=== PATIENT | female | born 1940 | race Caucasian/White ===

== ENCOUNTER → 2017-10-27 | Outpatient (CLI) | payer OTHER ==
[~2017-10-27] MED LIST: ASPIR 8181 MG PO; AUGMENTIN 875-1 EACH PO; EYE VITAMIN; GABAPENTIN100 MG PO; LIPITOR 20 MG T20 M1 PO; LISINOPRIL5 MG PO; NORVASC2.5 MG PO; [UNRECOGNIZED DRUG - REMARK]
== END ==
LOC: M.RAD 10-18 13:50
DX: M47.816 Spondylosis without myelopathy or radiculopathy, lumbar region (principal); M48.061 Spinal stenosis, lumbar region without neurogenic claudication; M51.16 Intervertebral disc disorders with radiculopathy, lumbar region; M41.86 Other forms of scoliosis, lumbar region; M48.07 Spinal stenosis, lumbosacral region

== ENCOUNTER 2018-03-06 14:52 | Emergency (ER) | payer OTHER ==
[~2018-03-06] VITALS: Ht 172.7 cm; Wt 61.2 kg
[2018-03-06] MEDS ORDERED: [UNRECOGNIZED DRUG - REMARK] (15:00)
[2018-03-06] MEDS ORDERED: EYE VITAMIN (15:00)
[2018-03-06] MEDS ORDERED: LISINOPRIL5 MG PO (15:01)
[2018-03-06] MEDS ORDERED: GABAPENTIN100 MG PO (15:01)
[2018-03-06] MEDS ORDERED: ASPIR 8181 MG PO (15:01)
[2018-03-06] MEDS ORDERED: LIPITOR 20 MG T20 M1 PO (15:01)
[2018-03-06] MEDS ORDERED: NORVASC2.5 MG PO (15:01)
[2018-03-06] MEDS ORDERED: AUGMENTIN 875-1 EACH PO (15:20)
[2018-03-06 16:41] VITALS: BP 135/73
== END 2018-03-06 16:42 | disposition home or self-care (01) ==
LOC: M.ERS 14:52
DX: S61.451A Open bite of right hand, initial encounter (principal); W54.0XXA Bitten by dog, initial encounter; Y93.89 Activity, other specified; Y92.89 Other specified places as the place of occurrence of the external cause; Y99.8 Other external cause status; I10 Essential (primary) hypertension; F17.210 Nicotine dependence, cigarettes, uncomplicated; Z88.0 Allergy status to penicillin; Z88.2 Allergy status to sulfonamides; Z88.5 Allergy status to narcotic agent; Z88.8 Allergy status to other drugs, medicaments and biological substances

== ENCOUNTER 2018-03-09 15:04 | Emergency (ER) | payer OTHER ==
[~2018-03-09] VITALS: Ht 172.7 cm; Wt 56.7 kg
[2018-03-09 16:19] VITALS: BP 112/64
== END 2018-03-09 16:20 | disposition home or self-care (01) ==
LOC: M.ERS 15:04
DX: S61.411D Laceration without foreign body of right hand, subsequent encounter (principal); X58.XXXD Exposure to other specified factors, subsequent encounter; I10 Essential (primary) hypertension; Z88.0 Allergy status to penicillin; Z88.2 Allergy status to sulfonamides; Z88.5 Allergy status to narcotic agent

== ENCOUNTER → 2018-08-17 | Outpatient (CLI) | payer OTHER | LOC: M.RAD 16:01 | DX: M47.26 Other spondylosis with radiculopathy, lumbar region (principal); M47.818 Spondylosis without myelopathy or radiculopathy, sacral and sacrococcygeal region; J43.1 Panlobular emphysema; I10 Essential (primary) hypertension; G89.29 Other chronic pain ==

== ENCOUNTER 2018-12-11 07:52 | Emergency (ER) | payer OTHER ==
[~2018-12-11] VITALS: Ht 172.7 cm; Wt 65.8 kg
[2018-12-11] MEDS ORDERED: HYDROCODON-ACE1 EAC7 PO (11:50)
[2018-12-11] MEDS ORDERED: IBUPROFEN 800800 M1 PO (11:50)
[2018-12-11 11:55] VITALS: BP 135/72
== END 2018-12-11 11:58 | disposition home or self-care (01) ==
LOC: M.ERS 07:52
DX: S92.321A Displaced fracture of second metatarsal bone, right foot, initial encounter for closed fracture (principal); S92.331A Displaced fracture of third metatarsal bone, right foot, initial encounter for closed fracture; I10 Essential (primary) hypertension; M81.0 Age-related osteoporosis without current pathological fracture; Z88.5 Allergy status to narcotic agent; Z88.0 Allergy status to penicillin; Z88.2 Allergy status to sulfonamides; Z88.1 Allergy status to other antibiotic agents; W06.XXXA Fall from bed, initial encounter; Y92.89 Other specified places as the place of occurrence of the external cause; Y93.89 Activity, other specified; Y99.8 Other external cause status

== ENCOUNTER → 2020-03-13 | Outpatient (CLI) | payer OTHER ==
[~2020-03-13] MED LIST changes: +HYDROCODON-ACE1 EAC7 PO; +IBUPROFEN 800800 M1 PO
== END ==
LOC: M.CT 15:10
PROVIDERS: ATTEND Registered Nurse Diabetes Educator
DX: M51.36 Other intervertebral disc degeneration, lumbar region (principal); J43.1 Panlobular emphysema; R91.8 Other nonspecific abnormal finding of lung field; J98.4 Other disorders of lung; J43.9 Emphysema, unspecified; M48.07 Spinal stenosis, lumbosacral region; M41.86 Other forms of scoliosis, lumbar region; M25.78 Osteophyte, vertebrae

== ENCOUNTER → 2020-05-20 | Outpatient (CLI) | payer OTHER ==
--- NOTE | 2020-05-20 14:15 | 2DMMODE ---
[place] [address] 2 D/M-MODE ECHOCARDIOGRAM Name: CANDELARIO DELGADO Room: [facility]#: [id number] Admission: 05/20/20 Attend Phys: HUNG Harper Discharge: Date of : 36 Date of Service: 05/20/20 1414 Report #: [id number] THIS REPORT FOR: cc: Ludy Ontiveros Tammy RNP Blick, David R. MD [facility] ~ APPROVED REPORT Study performed: 05/20/2020 12:49:22 EXAM: Limited 2D Echocardiogram Patient Location: Out-Patient BSA: 1.73 HR: 76 bpm BP: 142/82 mmHg Other Information Study Quality: Technically Limited Technically limited study due to ribs close together. Indications Murmur 2D Dimensions IVSd: 11.97 (7-11mm) LVOT Diam: 20.01 (18-24mm) LVDd: 34.75 mm PWd: 11.48 (7-11mm) Ascending Ao: 29.41 (22-36mm) LVDs: 20.06 (25-40mm) Aortic Root: 24.28 mm Aortic Valve AoV Peak Josh.: 1.25 m/s AO Peak Gr.: 6.22 mmHg LVOT Max P.67 mmHg AO Mean Gr.: 3.66 mmHg LVOT Mean P.94 mmHg LVOT Max V: 0.96 m/s AO V2 VTI: 20.91 cm LVOT Mean V: 0.64 m/s EDNA (VTI): 3.66 cm2 LVOT V1 VTI: 24.35 cm Pulmonary Valve PV Peak Josh.: 0.70 m/s PV Peak Gr.: 1.99 mmHg Left Ventricle The left ventricle is normal size. There [place] [address] 2 D/M-MODE ECHOCARDIOGRAM Name: CANDELARIO DELGADO Room: [facility]#: [id number] Admission: 05/20/20 Attend Phys: HUNG Harper Discharge: Date of : 36 Date of Service: 05/20/20 1414 Report #: [id number] motion. Mild concentric left ventricular hypertrophy. The left ventricular systolic function is normal. The left ventricular ejection fraction is within the normal range. LVEF is 55-60%. Right Ventricle The right ventricle is normal size. The right ventricular systolic function is normal. Atria The left atrium size is normal. The right atrium size is normal. Aortic Valve Moderate aortic valve sclerosis. No aortic regurgitation is present. There is no aortic valvular stenosis. Mitral Valve The mitral valve is normal in structure. There is no mitral valve regurgitation noted. No evidence of mitral valve stenosis. Tricuspid Valve The tricuspid valve is normal in structure. Trace tricuspid regurgitation. Pulmonic Valve The pulmonary valve is normal in structure. There is no pulmonic valvular regurgitation. Great Vessels The aortic root is normal in size. IVC is normal in size and collapses >50% with inspiration. Pericardium There is no pericardial effusion. <Conclusion> Mild concentric left ventricular hypertrophy. LVEF is 55-60%. Moderate aortic valve sclerosis. <ELECTRONICALLY SIGNED> By: Remy Connors MD, [facility] 05/20/20 1414 141 1414 Remy Connors MD, FACC /INF
== END ==
LOC: M.CRD 12:35
PROVIDERS: ATTEND Registered Nurse Diabetes Educator
DX: J43.1 Panlobular emphysema (principal); J42 Unspecified chronic bronchitis; I35.1 Nonrheumatic aortic (valve) insufficiency; M51.34 Other intervertebral disc degeneration, thoracic region; I65.23 Occlusion and stenosis of bilateral carotid arteries

== ENCOUNTER 2020-10-28 18:28 | Emergency (ER) | payer OTHER ==
[~2020-10-28] VITALS: Ht 175.3 cm; Wt 63.5 kg
[2020-10-28 19:32] LABS: URINE BILIRUBIN NEGATIVE (Negative); URINE BLOOD NEGATIVE (Negative); URINE CLARITY CLEAR; URINE COLOR YELLOW; URINE GLUCOSE-RANDOM NEGATIVE (Negative); URINE KETONES TRACE (Negative); URINE LEUKOCYTES-REFLEX NEGATIVE (Negative); URINE NITRITE-REFLEX NEGATIVE (Negative); URINE PROTEIN 1+ (Negative); URINE SPECIFIC GRAVITY 1.015 (1.005-1.030)
[2020-10-28 19:40] LABS: ABSOLUTE EOSINOPHILS 0.1 thou/uL (0.0-0.7); ABSOLUTE LYMPHOCYTES 1.6 thou/uL (0.8-5.3); ABSOLUTE MONOCYTES 0.9 thou/uL (0.0-1.2); ABSOLUTE NEUTROPHILS 7.4 thou/uL (1.6-8.1); BASOPHILS 0.4 %; EOSINOPHILS 0.9 %; HEMATOCRIT 40.4 % (37.0-47.0); HEMOGLOBIN 13.6 gm/dL (12.0-15.0); LYMPHOCYTES 15.9 %; MCH 31.6 pg (26.0-34.0); MCHC 33.7 g/dL (28.0-37.0); MCV 93.8 fL (80.0-100.0); MONOCYTES 8.9 %; MPV 7.7 fl. (7.2-11.1); NUCLEATED RBCS 0 /100WBC; PLATELET COUNT* 291 thou/uL (150-400); POLYS 73.9 %; RBC 4.31 mil/uL (4.20-5.00); RDW-CV 15.4 % (10.5-14.5)
[2020-10-28 19:47] LABS: CALCIUM 9.2 mg/dL (8.5-10.1); CREATININE 0.9 mg/dL (0.6-1.3); POTASSIUM 3.9 mmol/L (3.5-5.1)
[2020-10-28 19:51] LABS: ALBUMIN 4.1 g/dL (3.4-5.0); TOTAL BILIRUBIN 0.4 mg/dL (<0.1-1.0); TOTAL PROTEIN 8.4 g/dL (6.4-8.2)
[2020-10-28 20:31] LABS: CRYSTALS None Seen /LPF (None Seen); HYALINE CASTS 0-3 Few /LPF (None Seen); SQUAMOUS >10 Many /LPF (0-3)
[2020-10-28 20:32] LABS: BACTERIA-REFLEX >30 Many /HPF (None Seen); URINE RBC 0-2 Rare /HPF (0-2); URINE WBC-REFLEX 0-5 Rare /HPF (0-5)
[2020-10-28 21:28] VITALS: BP 167/54
== END 2020-10-28 21:29 | disposition home or self-care (01) ==
LOC: M.ERS 18:28
PROVIDERS: Emergency Medicine
DX: S92.411A Displaced fracture of proximal phalanx of right great toe, initial encounter for closed fracture (principal); I10 Essential (primary) hypertension; Z88.5 Allergy status to narcotic agent; Z88.0 Allergy status to penicillin; Z88.2 Allergy status to sulfonamides; W19.XXXA Unspecified fall, initial encounter; Y93.89 Activity, other specified; Y92.89 Other specified places as the place of occurrence of the external cause; Y99.8 Other external cause status

== ENCOUNTER 2021-01-29 15:59 | Emergency (ER) | payer OTHER ==
[~2021-01-29] VITALS: Ht 152.4 cm; Wt 53.1 kg
[2021-01-29 16:29] LABS: ABSOLUTE EOSINOPHILS 0.2 thou/uL (0.0-0.7); ABSOLUTE MONOCYTES 0.7 thou/uL (0.0-1.2); ABSOLUTE NEUTROPHILS 3.2 thou/uL (1.6-8.1); BASOPHILS 0.7 %; EOSINOPHILS 3.7 %; HEMATOCRIT 36.8 % (37.0-47.0); HEMOGLOBIN 12.2 gm/dL (12.0-15.0); LYMPHOCYTES 31.8 %; MONOCYTES 10.9 %; NUCLEATED RBCS 0 /100WBC; PLATELET COUNT* 306 thou/uL (150-400); POLYS 52.9 %; RBC 3.92 mil/uL (4.20-5.00); RDW-CV 16.2 % (10.5-14.5); WBC 6.1 thou/uL (4.0-11.0)
[2021-01-29 16:39] LABS: CALCIUM 8.9 mg/dL (8.5-10.1); POTASSIUM 4.1 mmol/L (3.5-5.1)
[2021-01-29 16:44] LABS: ALBUMIN 3.4 g/dL (3.4-5.0); TOTAL BILIRUBIN 0.3 mg/dL (<0.1-1.0); TOTAL PROTEIN 7.4 g/dL (6.4-8.2)
[2021-01-29 17:56] LABS: URINE BILIRUBIN NEGATIVE (Negative); URINE BLOOD NEGATIVE (Negative); URINE CLARITY CLEAR; URINE COLOR YELLOW; URINE GLUCOSE-RANDOM NEGATIVE (Negative); URINE KETONES NEGATIVE (Negative); URINE LEUKOCYTES-REFLEX NEGATIVE (Negative); URINE NITRITE-REFLEX NEGATIVE (Negative); URINE PROTEIN TRACE (Negative)
[2021-01-29] MEDS ORDERED: LOPERAMIDE 2 MG2 M1 PO (18:08)
[2021-01-29 18:22] VITALS: BP 128/86
== END 2021-01-29 18:23 | disposition home or self-care (01) ==
LOC: M.ERS 15:59
PROVIDERS: Physician Assistant
DX: R19.7 Diarrhea, unspecified (principal); I10 Essential (primary) hypertension; J44.9 Chronic obstructive pulmonary disease, unspecified; M81.0 Age-related osteoporosis without current pathological fracture; G30.9 Alzheimer's disease, unspecified; Z79.82 Long term (current) use of aspirin; Z79.899 Other long term (current) drug therapy; Z88.5 Allergy status to narcotic agent; Z88.0 Allergy status to penicillin; Z88.1 Allergy status to other antibiotic agents; Z88.2 Allergy status to sulfonamides

== ENCOUNTER 2021-02-06 20:06 | Inpatient (IN) | payer OTHER ==
[~2021-02-06] VITALS: Ht 175.3 cm; Wt 54.6 kg
[~2021-02-06 20:06] MED LIST changes: +LOPERAMIDE 2 MG2 M1 PO
[2021-02-06 20:07] VITALS: BP 163/85
[2021-02-06 20:38] LABS: ABSOLUTE LYMPHOCYTES 0.8 thou/uL (0.8-5.3); ABSOLUTE MONOCYTES 0.6 thou/uL (0.0-1.2); ABSOLUTE NEUTROPHILS 5.7 thou/uL (1.6-8.1); BASOPHILS 0.5 %; EOSINOPHILS 0.5 %; HEMATOCRIT 35.2 % (37.0-47.0); HEMOGLOBIN 11.5 gm/dL (12.0-15.0); LYMPHOCYTES 11.7 %; MCH 30.8 pg (26.0-34.0); MCHC 32.8 g/dL (28.0-37.0); MCV 94.1 fL (80.0-100.0); MONOCYTES 8.3 %; NUCLEATED RBCS 0 /100WBC; PLATELET COUNT* 301 thou/uL (150-400); RBC 3.74 mil/uL (4.20-5.00); WBC 7.2 thou/uL (4.0-11.0)
[2021-02-06 20:48] LABS: CALCIUM 8.2 mg/dL (8.5-10.1); POTASSIUM 4.1 mmol/L (3.5-5.1)
[2021-02-06 20:58] LABS: ALBUMIN 2.9 g/dL (3.4-5.0); MAGNESIUM 1.7 mg/dL (1.8-2.4); TOTAL BILIRUBIN 0.4 mg/dL (<0.1-1.0)
[2021-02-06 22:06] LABS: URINE BILIRUBIN NEGATIVE (Negative); URINE BLOOD 1+ (Negative); URINE COLOR YELLOW; URINE GLUCOSE-RANDOM NEGATIVE (Negative); URINE KETONES NEGATIVE (Negative); URINE PROTEIN 2+ (Negative)
[2021-02-06 22:09] LABS: URINE CLARITY CLOUDY; URINE LEUKOCYTES-REFLEX 2+ (Negative); URINE NITRITE-REFLEX POSITIVE (Negative)
[2021-02-06 22:16] LABS: SQUAMOUS 4-10 Moderate /LPF (0-3); URINE RBC None Seen /HPF (0-2); URINE WBC-REFLEX >25 Many /HPF (0-5)
[2021-02-06 22:17] LABS: BACTERIA-REFLEX >30 Many /HPF (None Seen); CASTS None Seen /LPF (None Seen); CRYSTALS None Seen /LPF (None Seen)
[2021-02-06 22:57] VITALS: BP 130/62
[2021-02-06 23:15] VITALS: BP 125/64
[2021-02-07 04:00] VITALS: BP 142/64; BP 95/58
[2021-02-07 09:30] VITALS: BP 112/58
--- NOTE | 2021-02-07 10:25 | EKG ---
[place] [address] ELECTROCARDIOGRAM REPORT Name: CANDELARIO DELGADO Room: [address] ADM IN [facility].R.#: [id number] Admission: 02/06/21 Attend Phys: Sen Roldan Discharge: Date of : 36 Date of Service: 02/06/212004 Report #: [id number] THIS REPORT FOR: //name// [facility] ED Test Date: 2021-02-06 Test Time: 20:05:11 Pat Name: CANDELARIO DELGADO Department: Room: [facility] Gender: F Stuffed Casing Tier: BXIONG : 1940 Requested By: Sara Gallegos Order Number: [id number] MD: Jovani Craig Measurements Intervals [place] Rate: 121 P: 89 [place]: 147 QRS: 34 QRSD: 89 T: 89 QT: 302 QTc: 429 Interpretive Statements Sinus tachycardia Probable left atrial enlargement Left ventricular hypertrophy No previous ECG available for comparison Electronically Signed On 02-07-2021 10:25:43 CDT by Jovani Craig [email or web address] <ELECTRONICALLY SIGNED> By: Jovani Craig MD, FACC 02/07/21 1025 04 04 Jovani Craig MD, FAC /EPI
[2021-02-07 20:00] VITALS: BP 154/80
[2021-02-08 04:00] VITALS: BP 163/78
[2021-02-08 04:51] LABS: HEMATOCRIT 30.6 % (37.0-47.0); HEMOGLOBIN 10.1 gm/dL (12.0-15.0); MCH 31.3 pg (26.0-34.0); MCHC 33.1 g/dL (28.0-37.0); MCV 94.6 fL (80.0-100.0); MPV 8.1 fl. (7.2-11.1); RBC 3.23 mil/uL (4.20-5.00); RDW-CV 16.7 % (10.5-14.5); WBC 9.1 thou/uL (4.0-11.0)
[2021-02-08 04:58] LABS: CREATININE 0.9 mg/dL (0.6-1.3); POTASSIUM 4.6 mmol/L (3.5-5.1)
[2021-02-08 09:00] VITALS: BP 180/92
[2021-02-08 16:22] VITALS: BP 177/88
[2021-02-08 20:20] VITALS: BP 185/101
[2021-02-09 04:23] LABS: ABSOLUTE EOSINOPHILS 0.2 thou/uL (0.0-0.7); ABSOLUTE LYMPHOCYTES 1.4 thou/uL (0.8-5.3); ABSOLUTE NEUTROPHILS 3.8 thou/uL (1.6-8.1); BASOPHILS 0.6 %; EOSINOPHILS 3.3 %; HEMATOCRIT 33.2 % (37.0-47.0); MCH 30.9 pg (26.0-34.0); MCV 93.7 fL (80.0-100.0); MONOCYTES 15.3 %; MPV 8.8 fl. (7.2-11.1); NUCLEATED RBCS 0 /100WBC; PLATELET COUNT* 252 thou/uL (150-400); POLYS 59.8 %; RBC 3.55 mil/uL (4.20-5.00); RDW-CV 16.6 % (10.5-14.5); WBC 6.4 thou/uL (4.0-11.0)
[2021-02-09 04:30] LABS: CALCIUM 8.4 mg/dL (8.5-10.1); CREATININE 0.7 mg/dL (0.6-1.3); POTASSIUM 3.8 mmol/L (3.5-5.1)
[2021-02-09 08:00] VITALS: BP 108/71
[2021-02-09] MEDS ORDERED: DOXYCYCLINE 10100 MG PO (12:12)
[2021-02-09] MEDS ORDERED: CEFUROXIME500 MG PO (12:12)
[2021-02-09 12:50] VITALS: BP 108/71
[2021-02-09 13:00] VITALS: BP 108/71
== END 2021-02-09 16:54 | disposition home health service (06) | DRG 689 ==
LOC: M.ERS 20:06 → M.TBA-ER 22:12 → M.ORTHSURG 22:12
PROVIDERS: Emergency Medicine; Internal Medicine; ADMIT Internal Medicine; ATTEND Internal Medicine
DX: N30.01 Acute cystitis with hematuria (principal); E43 Unspecified severe protein-calorie malnutrition; T88.3XXA Malignant hyperthermia due to anesthesia, initial encounter; Z68.1 Body mass index [BMI] 19.9 or less, adult; R65.10 Systemic inflammatory response syndrome (SIRS) of non-infectious origin without acute organ dysfunction; M81.0 Age-related osteoporosis without current pathological fracture; I10 Essential (primary) hypertension; J44.9 Chronic obstructive pulmonary disease, unspecified; E83.42 Hypomagnesemia; Y83.8 Other surgical procedures as the cause of abnormal reaction of the patient, or of later complication, without mention of misadventure at the time of the procedure; Y82.8 Other medical devices associated with adverse incidents; R63.0 Anorexia; G30.0 Alzheimer's disease with early onset; F02.80 Dementia in other diseases classified elsewhere, unspecified severity, without behavioral disturbance, psychotic disturbance, mood disturbance, and anxiety; B96.20 Unspecified Escherichia coli [E. coli] as the cause of diseases classified elsewhere; Z20.822 Contact with and (suspected) exposure to COVID-19; B96.89 Other specified bacterial agents as the cause of diseases classified elsewhere; Z88.6 Allergy status to analgesic agent; Z88.0 Allergy status to penicillin; Z88.2 Allergy status to sulfonamides; Z88.8 Allergy status to other drugs, medicaments and biological substances; Y92.89 Other specified places as the place of occurrence of the external cause; Z79.82 Long term (current) use of aspirin; Z79.899 Other long term (current) drug therapy; Z23 Encounter for immunization

== ENCOUNTER → 2021-03-12 | Outpatient (CLI) | payer OTHER ==
[~2021-03-12] MED LIST changes: +CEFUROXIME500 MG PO; +DOXYCYCLINE 10100 MG PO
== END ==
LOC: M.MRI 03-04 14:43
PROVIDERS: ATTEND Internal Medicine
DX: Z12.31 Encounter for screening mammogram for malignant neoplasm of breast (principal); I67.82 Cerebral ischemia; R41.3 Other amnesia; R29.898 Other symptoms and signs involving the musculoskeletal system

== ENCOUNTER 2021-03-30 18:36 | Inpatient (IN) | payer OTHER ==
[~2021-03-30] VITALS: Ht 160 cm; Wt 52.2 kg
[~2021-03-30 18:36] MED LIST changes: -ASPIR 8181 MG PO; +BAYER CHEWABLE81 MG PO
[2021-03-30 18:40] VITALS: BP 133/79
[2021-03-30 19:32] LABS: ABSOLUTE EOSINOPHILS 0.1 thou/uL (0.0-0.7); ABSOLUTE LYMPHOCYTES 2.3 thou/uL (0.8-5.3); ABSOLUTE NEUTROPHILS 3.7 thou/uL (1.6-8.1); BASOPHILS 0.6 %; EOSINOPHILS 1.9 %; HEMOGLOBIN 11.7 gm/dL (12.0-15.0); MCH 30.8 pg (26.0-34.0); MCHC 32.5 g/dL (28.0-37.0); MCV 94.8 fL (80.0-100.0); MONOCYTES 13.8 %; MPV 8.1 fl. (7.2-11.1); NUCLEATED RBCS 0 /100WBC; PLATELET COUNT* 266 thou/uL (150-400); POLYS 51.7 %; RDW-CV 15.3 % (10.5-14.5); WBC 7.1 thou/uL (4.0-11.0)
[2021-03-30 19:41] LABS: CALCIUM 8.8 mg/dL (8.5-10.1); CREATININE 1.1 mg/dL (0.6-1.3); POTASSIUM 4.1 mmol/L (3.5-5.1)
[2021-03-30 19:52] LABS: TOTAL BILIRUBIN 0.4 mg/dL (<0.1-1.0); TOTAL PROTEIN 7.5 g/dL (6.4-8.2)
[2021-03-30 22:16] VITALS: BP 125/70
[2021-03-31 04:38] VITALS: BP 157/81
[2021-03-31 08:00] VITALS: BP 148/83
[2021-03-31 12:00] VITALS: BP 152/86
--- NOTE | 2021-03-31 14:17 | EKG ---
[place] [address] ELECTROCARDIOGRAM REPORT Name: CANDELARIO DELGADO Room: [address] ADM IN ..#: [id number] Admission: 03/30/21 Attend Phys: Sen Roldan Discharge: Date of : 36 Date of Service: 03/30/211911 Report #: [id number] THIS REPORT FOR: //name// [facility] ED Test Date: 2021-03-30 Test Time: 19:12:20 Pat Name: CANDELARIO DELGADO Department: Room: [facility] Gender: F Desk Assistant: : 1940 Requested By: Jim Jacobs Order Number: [id number] MD: Quentin De La Rosa Measurements Intervals [place] Rate: 94 P: 89 [place]: 136 QRS: 76 QRSD: 80 T: 91 QT: 341 QTc: 427 Interpretive Statements Sinus rhythm Biatrial enlargement Left ventricular hypertrophy Nonspecific T abnrm, anterolateral leads Compared to ECG 02/06/2021 20:05:11 Sinus tachycardia no longer present Electronically Signed On 03-31-2021 14:17:17 CLINICAL OPERATIONS MANAGER by Quentin De La Rosa [email or web address] <ELECTRONICALLY SIGNED> By: Quentin De La Rosa MD, FACC 03/31/21 1417 11 11 Quentin De La Rosa MD, FACC /EPI
[2021-03-31 16:00] VITALS: BP 171/94
[2021-03-31 20:00] VITALS: BP 140/83
[2021-04-01 01:29] VITALS: BP 168/86
[2021-04-01 04:12] LABS: ABSOLUTE LYMPHOCYTES 0.8 thou/uL (0.8-5.3); ABSOLUTE MONOCYTES 0.1 thou/uL (0.0-1.2); ABSOLUTE NEUTROPHILS 4.2 thou/uL (1.6-8.1); BASOPHILS 0.1 %; HEMATOCRIT 33.2 % (37.0-47.0); HEMOGLOBIN 10.7 gm/dL (12.0-15.0); LYMPHOCYTES 16.5 %; MCH 30.6 pg (26.0-34.0); MCHC 32.1 g/dL (28.0-37.0); MCV 95.3 fL (80.0-100.0); MONOCYTES 1.6 %; MPV 8.5 fl. (7.2-11.1); NUCLEATED RBCS 0 /100WBC; PLATELET COUNT* 275 thou/uL (150-400); POLYS 81.8 %; RBC 3.48 mil/uL (4.20-5.00); RDW-CV 15.1 % (10.5-14.5); WBC 5.1 thou/uL (4.0-11.0)
[2021-04-01 04:29] VITALS: BP 155/81
[2021-04-01 05:04] LABS: CALCIUM 8.7 mg/dL (8.5-10.1); CREATININE 0.8 mg/dL (0.6-1.3); POTASSIUM 4.1 mmol/L (3.5-5.1)
[2021-04-01 08:00] VITALS: BP 167/103
[2021-04-01 12:48] VITALS: BP 159/84
[2021-04-01 16:59] VITALS: BP 148/94
[2021-04-01 20:25] VITALS: BP 141/75
[2021-04-02 04:00] VITALS: BP 168/91
[2021-04-02 08:00] VITALS: BP 177/97
[2021-04-02 13:00] VITALS: BP 169/94
[2021-04-02] MEDS ORDERED: PROTONIX40 M2 PO (13:01)
[2021-04-02] MEDS ORDERED: DOXYCYCLINE 10100 MG PO (13:01)
[2021-04-02] MEDS ORDERED: PROAIR HFA8.5 GM INH (13:01)
[2021-04-02] MEDS ORDERED: PREDNISONE 10 M10 MG PO (13:01)
[2021-04-02 14:37] VITALS: BP 169/94
[2021-04-02 15:16] VITALS: BP 169/94
== END 2021-04-02 16:54 | disposition home health service (06) | DRG 177 ==
LOC: M.ERS 18:36 → M.ORTHSURG 21:21 → M.TBA-ER 21:21 → M.ORTHSURG 22:52
PROVIDERS: Internal Medicine; Physician Assistant; ADMIT Internal Medicine; ATTEND Internal Medicine
DX: J69.0 Pneumonitis due to inhalation of food and vomit (principal); L89.93 Pressure ulcer of unspecified site, stage 3; E43 Unspecified severe protein-calorie malnutrition; M81.0 Age-related osteoporosis without current pathological fracture; F17.210 Nicotine dependence, cigarettes, uncomplicated; Z20.822 Contact with and (suspected) exposure to COVID-19; I10 Essential (primary) hypertension; J44.9 Chronic obstructive pulmonary disease, unspecified; Z88.6 Allergy status to analgesic agent; Z88.0 Allergy status to penicillin; Z88.2 Allergy status to sulfonamides; Z88.8 Allergy status to other drugs, medicaments and biological substances; Z68.20 Body mass index [BMI] 20.0-20.9, adult; Z79.82 Long term (current) use of aspirin; Z79.899 Other long term (current) drug therapy; Z28.21 Immunization not carried out because of patient refusal

== ENCOUNTER → 2021-05-05 | Outpatient (CLI) | payer OTHER ==
[~2021-05-05] MED LIST changes: +PREDNISONE 10 M10 MG PO; +PROAIR HFA8.5 GM INH; +PROTONIX40 M2 PO
[2021-05-05 13:36] LABS: CREATININE 0.9 mg/dL (0.6-1.3)
== END ==
LOC: M.RAD 04-26 09:19
PROVIDERS: ATTEND Internal Medicine
DX: J84.10 Pulmonary fibrosis, unspecified (principal); J92.9 Pleural plaque without asbestos; M81.0 Age-related osteoporosis without current pathological fracture; J69.0 Pneumonitis due to inhalation of food and vomit; E43 Unspecified severe protein-calorie malnutrition; Z78.0 Asymptomatic menopausal state

== ENCOUNTER 2021-05-09 02:21 | Observation (INO) | payer OTHER ==
[~2021-05-09] VITALS: Ht 175.3 cm; Wt 48.5 kg
[2021-05-09 02:22] VITALS: BP 152/83
[2021-05-09 03:00] LABS: HEMATOCRIT 29.3 % (37.0-47.0); HEMOGLOBIN 9.4 gm/dL (12.0-15.0); MCHC 32.1 g/dL (28.0-37.0); MCV 93.5 fL (80.0-100.0); MPV 7.9 fl. (7.2-11.1); NUCLEATED RBCS 0 /100WBC; PLATELET COUNT* 247 thou/uL (150-400); RBC 3.13 mil/uL (4.20-5.00); RDW-CV 15.9 % (10.5-14.5); WBC 4.2 thou/uL (4.0-11.0)
[2021-05-09 03:04] LABS: CALCIUM 7.8 mg/dL (8.5-10.1); POTASSIUM 3.9 mmol/L (3.5-5.1)
[2021-05-09 03:15] LABS: ALBUMIN 2.7 g/dL (3.4-5.0); TOTAL BILIRUBIN 0.2 mg/dL (<0.1-1.0); TOTAL PROTEIN 5.9 g/dL (6.4-8.2)
[2021-05-09 03:35] LABS: INFLUENZA A ANTIGEN Negative (Negative); INFLUENZA B ANTIGEN Negative (Negative)
[2021-05-09 06:13] LABS: ABSOLUTE BASOPHILS 0.1 thou/uL (0.0-0.2); ABSOLUTE LYMPHOCYTES 2.9 thou/uL (0.8-5.3); ABSOLUTE MONOCYTES 0.2 thou/uL (0.0-1.2); ATYPICAL LYMPHS 6 %; PLATELET ESTIMATE ADEQUATE
[2021-05-09 07:43] VITALS: BP 152/86
--- NOTE | 2021-05-09 10:19 | EKG ---
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: [place] : 1940 Requested By: Sara Gallegos Order Number: [id number] MD: Remy Connors Measurements Intervals [place] Rate: 64 P: 87 [place]: 151 QRS: 73 QRSD: 95 T: 90 QT: 406 QTc: 419 Interpretive Statements Sinus rhythm RSR' in V1 or V2, probably normal variant Left ventricular hypertrophy Abnrm T, consider ischemia, anterolateral lds Compared to ECG 03/30/2021 19:12:20 RSR' in V1 or V2 now present Atrial abnormality no longer present Electronically Signed On 05-09-2021 10:19:15 EMERGENCY MEDICAL TECHNICIAN BASIC by Remy Connors [email or web address] <ELECTRONICALLY SIGNED> By: Remy Connors MD, [facility] 05/09/21 1019 3 3 Remy Connors MD, [facility] /EPI
[2021-05-09 11:47] VITALS: BP 109/65
[2021-05-09 11:50] VITALS: BP 111/65
[2021-05-09 15:43] VITALS: BP 106/55
[2021-05-09] MEDS ORDERED: VITAMIN B12-FO1 EAC1 (18:23)
[2021-05-09] MEDS ORDERED: CARVEDILOL12.5 MG PO (18:23)
[2021-05-09] MEDS ORDERED: VITAMIN D310 MC2 PO (18:24)
[2021-05-09 20:00] VITALS: BP 132/41
[2021-05-10] VITALS (10 sets, daily range): BP systolic 85–143; BP diastolic 51–74
[2021-05-10 03:34] LABS: HEMATOCRIT 28.3 % (37.0-47.0); MCH 29.9 pg (26.0-34.0); MCHC 31.6 g/dL (28.0-37.0); MCV 94.7 fL (80.0-100.0); MPV 7.9 fl. (7.2-11.1); RBC 2.99 mil/uL (4.20-5.00); RDW-CV 15.6 % (10.5-14.5); WBC 4.3 thou/uL (4.0-11.0)
--- NOTE | 2021-05-10 03:39 | NUR ---
ASSUMED CARE OF PT AFTER REPORT AT 1930. PT A&OX4. VSS. PHYSICAL ASSESSMENT COMPLETED AND CHARTED. PT ON RA. PT TRACING SR ON TELE. PT WITH EPISODES OF INCONTINENT BOWEL & BLADDER. PT DENIES PAIN. PT ABLE TO SLEEP WELL ON BED. FALL PRECAUTIONS IN PLACE. CALL LIGHT WITHIN REACH.
[2021-05-10 03:44] LABS: CREATININE 0.9 mg/dL (0.6-1.3)
[2021-05-10] MEDS ORDERED: PROAIR HFA8.5 GM INH (13:44)
[2021-05-10] MEDS ORDERED: PREDNISONE 10 M10 MG PO (13:45)
--- NOTE | 2021-05-10 17:04 | NUR ---
CM ASSESSMENT ASSESSMENT COMPLETED WITH PT DAUGHTER (SHIN ESCOBEDO - [phone]). PT LIVES WITH DAUGHTER AND DAUGHTER IS PT CAREGIVER AND COMPLETES ALL PT ADLS. PT IS WHEELCHAIR BOUND. PT HAS NO HX OF SKILLED OR REHAB. PT HAS HH VIA [facility] ([phone]). PT MED CLEAR FOR DC AND WILL DC HOME TODAY WITH DAUGHTER. [facility] TO CONTINUE TO PROVIDE HH.
--- NOTE | 2021-05-10 17:26 | NUR ---
PATIENT REMAINED ON RA THIS SHIFT. PATIENT INCONTINENT OF URINE BUT ALSO USED BSC. BM NOTED THIS SHIFT. ORDERS FOR DISCHARGE TO HOME WITH HH WITH DAUGHTER. PATIENT DAUGHTER INSTRUCTED ON DISCHARGE AND SCRIPT SENT TO PREFFERED PHARMACY. PATIENT TAKEN OUT VIA WHEELCHAIR WITH ALL BELONGINGS.
== END 2021-05-10 17:15 | disposition home health service (06) ==
LOC: M.ERS 02:21 → M.ORTHSURG 03:43 → M.TBA-ER 03:43 → M.ORTHSURG 03:43
PROVIDERS: Emergency Medicine; Family Medicine; ADMIT Internal Medicine; ATTEND Internal Medicine
DX: U07.1 COVID-19 (principal); J96.01 Acute respiratory failure with hypoxia; J12.89 Other viral pneumonia; J43.9 Emphysema, unspecified; F03.90 Unspecified dementia, unspecified severity, without behavioral disturbance, psychotic disturbance, mood disturbance, and anxiety; I10 Essential (primary) hypertension; Z88.0 Allergy status to penicillin; Z88.2 Allergy status to sulfonamides; Z88.8 Allergy status to other drugs, medicaments and biological substances

== ENCOUNTER 2021-05-14 10:37 | Observation (INO) | payer OTHER ==
[~2021-05-14] VITALS: Ht 175.3 cm; Wt 49.9 kg
[~2021-05-14 10:37] MED LIST changes: +CARVEDILOL12.5 MG PO; +VITAMIN B12-FO1 EAC1; +VITAMIN D310 MC2 PO
[2021-05-14 10:55] VITALS: BP 121/87
[2021-05-14 16:08] LABS: ABSOLUTE LYMPHOCYTES 0.8 thou/uL (0.8-5.3); ABSOLUTE MONOCYTES 0.2 thou/uL (0.0-1.2); ABSOLUTE NEUTROPHILS 3.1 thou/uL (1.6-8.1); BASOPHILS 0.1 %; HEMATOCRIT 33.2 % (37.0-47.0); HEMOGLOBIN 10.6 gm/dL (12.0-15.0); LYMPHOCYTES 18.9 %; MCH 29.6 pg (26.0-34.0); MCV 92.7 fL (80.0-100.0); MONOCYTES 5.9 %; MPV 8.4 fl. (7.2-11.1); NUCLEATED RBCS 0 /100WBC; PLATELET COUNT* 352 thou/uL (150-400); POLYS 75.1 %; RBC 3.58 mil/uL (4.20-5.00); RDW-CV 15.9 % (10.5-14.5); WBC 4.2 thou/uL (4.0-11.0)
[2021-05-14 16:19] LABS: CALCIUM 8.1 mg/dL (8.5-10.1); POTASSIUM 4.5 mmol/L (3.5-5.1)
[2021-05-14 16:23] LABS: ALBUMIN 3.1 g/dL (3.4-5.0); TOTAL BILIRUBIN 0.3 mg/dL (<0.1-1.0); TOTAL PROTEIN 6.7 g/dL (6.4-8.2)
[2021-05-14 17:04] LABS: URINE BILIRUBIN NEGATIVE (Negative); URINE BLOOD NEGATIVE (Negative); URINE CLARITY CLEAR; URINE COLOR YELLOW; URINE GLUCOSE-RANDOM NEGATIVE (Negative); URINE KETONES NEGATIVE (Negative); URINE LEUKOCYTES-REFLEX NEGATIVE (Negative); URINE NITRITE-REFLEX NEGATIVE (Negative); URINE PROTEIN TRACE (Negative)
--- NOTE | 2021-05-14 17:58 | EKG ---
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 <ELECTRONICALLY SIGNED> By: Jovani Craig MD, FACC 05/14/21 1758 1537 1537 Jovani Craig MD, [facility] /EPI
[2021-05-15] VITALS (9 sets, daily range): BP systolic 144–164; BP diastolic 65–83
--- NOTE | 2021-05-15 13:23 | NUR ---
Received call from pump house technician that patient is active with [facility] and may need oxygen. Faxed clinicals to [facility] (pt is observations status and this was communicated to [facility]). Per Ex Ox pt does not need oxygen for home.
[2021-05-15] MEDS ORDERED: PREDNISONE 10 M10 MG PO (18:03)
== END 2021-05-15 19:52 | disposition home or self-care (01) ==
LOC: M.ERS 10:37 → M.TBA-ER 19:52
PROVIDERS: Physician Assistant; ADMIT Internal Medicine; ATTEND Internal Medicine
DX: U07.1 COVID-19 (principal); E43 Unspecified severe protein-calorie malnutrition; M81.0 Age-related osteoporosis without current pathological fracture; J93.83 Other pneumothorax; I10 Essential (primary) hypertension; J44.9 Chronic obstructive pulmonary disease, unspecified; F17.210 Nicotine dependence, cigarettes, uncomplicated; Z79.82 Long term (current) use of aspirin; Z79.899 Other long term (current) drug therapy; Z88.5 Allergy status to narcotic agent; Z88.0 Allergy status to penicillin; Z88.2 Allergy status to sulfonamides; Z68.1 Body mass index [BMI] 19.9 or less, adult

== ENCOUNTER 2021-05-20 14:11 | Emergency (ER) | payer OTHER ==
[~2021-05-20] VITALS: Ht 157.5 cm; Wt 44.7 kg
[2021-05-20 14:55] LABS: HEMATOCRIT 38.1 % (37.0-47.0); HEMOGLOBIN 12.2 gm/dL (12.0-15.0); MCV 90.6 fL (80.0-100.0); MPV 9.1 fl. (7.2-11.1); NUCLEATED RBCS 0 /100WBC; PLATELET COUNT* 513 thou/uL (150-400); WBC 6.1 thou/uL (4.0-11.0)
--- NOTE | 2021-05-20 14:57 | EKG ---
[place] [address] ELECTROCARDIOGRAM REPORT Name: CANDELARIO DELGADO Room: [facility].#: [id number] Admission: Attend Phys: Discharge: Date of : 36 Date of Service: 05/20/21 1451 Report #: [id number] THIS REPORT FOR: //name// [facility] ED Test Date: 2021-05-20 Test Time: 14:51:56 Pat Name: CANDELARIO DELGADO Department: Room: Gender: F Gym Attendant: MELISSA : 1940 Requested By: Stacia Burkett Order Number: [id number] MD: Remy Connors Measurements Intervals [place] Rate: 79 P: 86 [place]: 138 QRS: 78 QRSD: 90 T: 258 QT: 345 QTc: 396 Interpretive Statements Sinus rhythm Right atrial enlargement Left ventricular hypertrophy Repol abnrm suggests ischemia, diffuse leads Compared to ECG 05/14/2021 15:37:39 Early repolarization now present Possible ischemia now present Electronically Signed On 05-20-2021 14:57:04 BAR TURNER by Remy Connors [email or web address] <ELECTRONICALLY SIGNED> By: Remy Connors MD, [facility] 05/20/21 1457 145 145 Remy Connors MD, [facility] /EPI
[2021-05-20 15:08] LABS: CALCIUM 8.5 mg/dL (8.5-10.1); POTASSIUM 4.4 mmol/L (3.5-5.1)
[2021-05-20 15:13] LABS: ALBUMIN 3.2 g/dL (3.4-5.0); TOTAL BILIRUBIN 0.3 mg/dL (<0.1-1.0); TOTAL PROTEIN 7.2 g/dL (6.4-8.2)
[2021-05-20 16:16] LABS: URINE BILIRUBIN NEGATIVE (Negative); URINE BLOOD NEGATIVE (Negative); URINE CLARITY CLEAR; URINE COLOR YELLOW; URINE GLUCOSE-RANDOM NEGATIVE (Negative); URINE KETONES NEGATIVE (Negative); URINE LEUKOCYTES-REFLEX NEGATIVE (Negative); URINE NITRITE-REFLEX NEGATIVE (Negative); URINE PROTEIN NEGATIVE (Negative); URINE SPECIFIC GRAVITY 1.015 (1.005-1.030); URINE UROBILINOGEN 0.2 E.U./dl (0.2-1.0)
[2021-05-20 16:18] LABS: ABSOLUTE LYMPHOCYTES 0.7 thou/uL (0.8-5.3); ABSOLUTE MONOCYTES 0.1 thou/uL (0.0-1.2); ABSOLUTE NEUTROPHILS 5.3 thou/uL (1.6-8.1); PLATELET ESTIMATE ADEQUATE
[2021-05-20 19:30] VITALS: BP 159/72
== END 2021-05-20 19:30 | disposition home or self-care (01) ==
LOC: M.ERS 14:11
PROVIDERS: Physician Assistant
DX: U07.1 COVID-19 (principal); F41.9 Anxiety disorder, unspecified; J93.9 Pneumothorax, unspecified; I10 Essential (primary) hypertension; J44.9 Chronic obstructive pulmonary disease, unspecified; F17.210 Nicotine dependence, cigarettes, uncomplicated; Z79.899 Other long term (current) drug therapy; Z88.5 Allergy status to narcotic agent; Z88.0 Allergy status to penicillin; Z88.2 Allergy status to sulfonamides